=== PATIENT | male | born 1960 | race African-American/Black ===

== ENCOUNTER 2022-04-18 00:37 | Inpatient (IN) | payer OTHER ==
[~2022-04-18] VITALS: Ht 172.7 cm; Wt 87.0 kg
[2022-04-18 01:26] LABS: BASOPHILS % (AUTO) 1.2 % (0.0-2.0); HEMATOCRIT 41.2 % (41-53); HEMOGLOBIN 13.9 g/dL (13.5-17.5); LYMPHOCYTES # (AUTO) 1.9 K/uL (1.0-4.8); LYMPHOCYTES % (AUTO) 34.8 % (22.0-44.0); MEAN CORPUSCULAR HEMOGLOBIN 28.9 pg (26.0-34.0); MEAN CORPUSCULAR HGB CONC 33.7 G/dL (31.0-37.0); MEAN CORPUSCULAR VOLUME 86 fL (80-100); MONOCYTES # (AUTO) 0.5 K/uL (0.1-1.0); MONOCYTES % (AUTO) 9.1 % (2.0-9.0); NEUTROPHILS # (AUTO) 2.3 K/uL (1.8-7.7); NEUTROPHILS % (AUTO) 42.9 % (40.0-70.0); PLATELET COUNT (AUTO) 192 K/uL (150-450); RED BLOOD CELL COUNT(AUTO) 4.79 MIL/uL (4.50-5.90)
[2022-04-18 01:38] LABS: ANION GAP 6 mmol/L (8-16); CALCIUM, TOTAL 8.8 mg/dL (8.8-10.5); CARBON DIOXIDE 28 mmol/L (22-29); CHLORIDE 103 mmol/L (98-107); CREATININE 1.01 mg/dL (0.60-1.30); GLOMERULAR FILTR. RATE CALC > 60 mL/min (>60); GLUCOSE,RANDOM 91 mg/dL (70-110); POTASSIUM 3.4 mmol/L (3.5-5.1); SODIUM SERUM 137 mmol/L (136-145); UREA NITROGEN, BLOOD 13 mg/dL (7-18)
[2022-04-18 01:42] LABS: D-DIMER 2.6 mg/L FEU (0.00-0.50)
[2022-04-18 01:46] LABS: LACTIC ACID 1.1 mmol/L (0.4-2.0)
[2022-04-18 01:52] LABS: ALANINE AMINOTRANSFERASE 32 U/L (12-78); ALBUMIN 3.7 g/dL (3.4-5.0); ALKALINE PHOSPHATASE 87 U/L (46-116); ASPARTATE AMINOTRANSFERASE 29 U/L (15-37); BILIRUBIN,TOTAL 0.4 mg/dL (0.1-1.0); LIPASE 74 U/L (73-393)
[2022-04-18 01:58] LABS: B-TYPE NATRIURETIC PEPTIDE 50 pg/mL (0-100)
[2022-04-18] MEDS ORDERED: SODIUM CHLORIDE 0.9% 100 ML ONE (02:42)
[2022-04-18] MEDS ORDERED: IOHEXOL 350 MG/ML 100 ML VIAL ONE (02:43)
[2022-04-18] MEDS ORDERED: ASPIRIN 325 MG TABLET PO ONE (02:45)
[2022-04-18] MEDS ORDERED: NITROGLYCERIN 0.4 MG SUBLINGUAL TABLET #25 SL ONE (02:45)
[2022-04-18] MEDS ORDERED: ONDANSETRON HCL 4 MG/2 ML VIAL IVP ONE (02:45)
[2022-04-18] MEDS ORDERED: MORPHINE SULFATE 4 MG/ML SYRINGE IVP ONE (02:45)
[2022-04-18] MEDS ORDERED: SODIUM CHLORIDE 0.9% 2,000 ML IV ONE (02:45)
[2022-04-18 05:12] LABS: COVID AG,FIA SOURCE NASOPHARYNGEAL
[2022-04-18] MEDS ORDERED: POTASSIUM CHL 10 MEQ/WATER 50 ML IV PRN (08:45)
[2022-04-18] MEDS ORDERED: MAGNESIUM HYDROXIDE SUSPENSION 30 ML UDCUP PO PRN (08:45)
[2022-04-18] MEDS ORDERED: POTASSIUM CHLORIDE 20 MEQ ER TABLET PO PRN (08:45)
[2022-04-18] MEDS: FAMOTIDINE 20 MG TABLET PO SCH (08:51)
[2022-04-18] MEDS: HEPARIN SODIUM,PORCINE 5,000 UNITS/ML VIAL SQ SCH (15:58)
[2022-04-18] MEDS: ACETAMINOPHEN 325 MG TABLET PO PRN (16:00)
[2022-04-18 19:26] LABS: APPEARANCE,URINE CLEAR (CLEAR); BILIRUBIN,URINE NEGATIVE (NEGATIVE); GLUCOSE, URINE (UA) NEGATIVE (NEGATIVE); KETONES,URINE NEGATIVE (NEGATIVE); LEUKOCYTE ESTERASE ,URINE NEGATIVE (NEGATIVE); NITRATE,URINE NEGATIVE (NEGATIVE); OCCULT BLOOD,URINE NEGATIVE (NEGATIVE); PROTEIN,URINE NEGATIVE (NEGATIVE); SPECIFIC GRAVITIY, URINE 1.019 (1.003-1.030); UROBILINOGEN,URINE <=1.0 mg/dL (<=1.0)
[2022-04-18 19:30] LABS: AMPHET/METH SCREEN,URINE NEGATIVE (NEGATIVE); BARBITURATE SCREEN, URINE NEGATIVE (NEGATIVE); BENZODIAZEPINES SCREEN,URINE NEGATIVE (NEGATIVE); CANNABINOID SCREEN,URINE NEGATIVE (NEGATIVE); COCAINE SCREEN,URINE NEGATIVE (NEGATIVE); METHADONE SCREEN, URINE NEGATIVE (NEGATIVE); OPIATE SCREEN,URINE POSITIVE (NEGATIVE); PHENCYCLIDINE SCREEN,URINE NEGATIVE (NEGATIVE)
[2022-04-18 19:37] LABS: BACTERIA,URINE None Seen /HPF (None Seen); RBC,URINE None Seen /HPF (0-2); SQUAMOUS EPITHELIAL CELL,UR Rare /LPF (None Seen); WBC,URINE None Seen /HPF (0-5)
[2022-04-18 22:28] VITALS: BP 146/83
[2022-04-19] MEDS: HEPARIN SODIUM,PORCINE 5,000 UNITS/ML VIAL SQ SCH ×3 (00:08→16:26)
[2022-04-19 05:45] VITALS: BP 136/84
[2022-04-19 08:11] VITALS: BP 115/67
[2022-04-19] MEDS: FAMOTIDINE 20 MG TABLET PO SCH (08:39)
[2022-04-19] MEDS: ACETAMINOPHEN 325 MG TABLET PO PRN (08:40)
[2022-04-19 12:00] VITALS: BP 122/67
[2022-04-19] MEDS ORDERED: IBUPROFEN 800 MG TABLET PO PRN (15:30)
[2022-04-19] MEDS ORDERED: FAMO20 PO (16:08)
[2022-04-19 16:10] VITALS: BP 129/84
[2022-04-19] MEDS ORDERED: ACET-784 PO (16:10)
[2022-04-19] MEDS ORDERED: IBUP-1556 PO (16:11)
[2022-04-19 19:29] VITALS: BP 142/81
== END 2022-04-19 20:30 | DRG 194 ==
LOC: EMS 00:37 → AHU 07:18 → 5S 19:01
PROVIDERS: ADMIT Internal Medicine; ATTEND Internal Medicine
DX: R09.1 Pleurisy (principal); D68.9 Coagulation defect, unspecified; E86.0 Dehydration; Z20.822 Contact with and (suspected) exposure to COVID-19; E87.6 Hypokalemia; I10 Essential (primary) hypertension; K21.9 Gastro-esophageal reflux disease without esophagitis; R07.81 Pleurodynia; R10.9 Unspecified abdominal pain; R20.0 Anesthesia of skin; R77.8 Other specified abnormalities of plasma proteins
CPT/HCPCS: 71045; 71260; 72193; 74160; 80053; 80307; 81001; 83605; 83690; 83880; 84132; 84484; 85025; 85379; 85610; 93005; 93306; 93970; 99291; J1644; J2270; J2405; J7030; J7050; Q9967; 36415-L1; 36415-TC